=== PATIENT | female | born 1950 | race Caucasian/White ===

== ENCOUNTER → 2016-10-20 | Outpatient (CLI) | payer MEDICARE, BC ==
[~2016-10-20] MED LIST: EZET10TA3 PO; LISI-327 PO; ROSU20TA PO; SOLI5TAB5 PO; [UNRECOGNIZED DRUG - CODE] PO
--- NOTE | 2016-10-21 00:03 | HKNOTE ---
DATE OF SERVICE: MAIN COMPLAINT: Pain in the right knee. Patient underwent arthroscopic surgery of the right knee on 12/05/2015. She was very pleased with t he result of the surgery. She developed a new pain in her knee in 07/2016. Dr. Pattie vazquez ordered a new MRI scan of her knee, which showed a tear of the lateral meniscus. She comes in for revaluation of the knee. PRESENT COMPLAINTS: She gets no pain at rest. She has no locking or instability of the knee. Occa sionally gets very sharp pains in the knee like a knife stabbing into the knee, but mostly the pain is a dull ache, which is absent at rest. PHYSICAL EXAMINATION: GENERAL: A fit looking 66-year-old female. She walks without a walking aid. VITAL SIGNS: Height 5 feet 6 inches, weight 182 pounds, blood pressure 120/80, temperature 97.8. RIGHT KNEE: The right knee shows normal alignment. Extension lacks 5 degrees (painful). Flexion i s to 120 degrees. Tender over the medial joint line. Strength is 5/5. The medial and lateral donna ateral ligaments and cruciate ligaments are intact. Ingrid test is negative. There is no effusion, tenderness, scarring, crepitus, or cysts. The patella tracks normally. There is no tenderness on the articular surface of the patella or in the patellar groove. The Q angle is normal. IMAGING: MRI obtained on 09/02/2016 is reported by the radiologist as showing post-surgical alterat ion of the posterior horn of the medial meniscus. 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 Large to moderate right knee joint effusion with a Michael cyst. Medial joint elmer rtment osteoarthrosis. DISCUSSION: The MRI scan was obtained without gadolinium, so is not totally reliable. However, the patient's knee lacks extension and quite possibly she does have a parrot beak tear of the lateral m eniscus. She does not have any of the other classic symptoms of a torn meniscus, namely locking and instabili ty. There is also no swelling in the knee. MANAGEMENT: The patient was given a repeat injection of 2 mL of Kenalog and 6 mL of 2% lidocaine in to the knee. If this eliminates all her symptoms, then clearly there is no mechanical problem in the knee. If it does not, then we may have to consider a repeat operative arthroscopy focused on the lateral menisc us. Dictated By: WOODY SANDOVAL/ABIGAIL Conf#: [id number] DID#: [id number]
== END | disposition home or self-care (01) ==
LOC: HKI 13:46
DX: Z47.89 Encounter for other orthopedic aftercare (principal); S83.281D Other tear of lateral meniscus, current injury, right knee, subsequent encounter; X58.XXXD Exposure to other specified factors, subsequent encounter
CPT/HCPCS: 20610; G0463; J3301

== ENCOUNTER → 2017-01-20 | Outpatient (CLI) | payer MEDICARE, BC ==
--- NOTE | 2017-01-20 15:08 | PN ---
Date/Time of Note Date/Time of Note DATE: 01/20/17 TIME: 14:57 Outpatient Progress Note Chief Complaint Follow up for Right Knee Pain. (Requesting cortisone injection) HPI 66-year-old female presents today for follow-up regarding right knee pain. Last seen on 10/20/2016 for cortisone injection to the right knee was performed. Patient explains significant relief status post cortisone injection up until recently. Patient has recently returned from a trip. During the trip, she states that she did a lot of exploring, walking as well as a lot of climbing up and down stairs. She has had flare up to the knee with pain on average of 7 out of 10 pain. Denies any falls or injury. Pain is aching and when asked, it appears generalized throughout the knee based off patient description. Patient would like repeat cortisone injection for pain relief. Takes anti- inflammatories as needed. Review of Systems Const: No Fever, no chills, no Fatigue, normal appetite, no diaphoresis. Resp: No SOB, no wheezing, no chest pain. CV: No chest pain, no palpitaions, no QUIGLEY. Physical Exam Blood pressure is 120/66, temperature is 98, pulse is 78, respiratory rate is 12, height is 5 foot 6 inches, weight is 176 pounds. General Appearance: well-developed, well-nourished, in no acute distress. Right knee: No obvious abnormalities on inspection. Patient has full range of motion at 0-130. Mild tenderness to palpation primarily to the medial compartment. Patient has pain with range of motion. 5/5 strength on resistance with flexion and extension. X-ray of the right knee performed on 07/29/2016 showing moderate to severe medial joint space narrowing. Osteoarthritic changes. Allergies Coded Allergies: aspirin (Verified Allergy, Severe, ASTHMA ATTACK, 12/05/15) Assessment/Plan * Cortisone injection to the right knee performed today. Area was marked and then cleaned with Betadine swab. 0.25% Marcaine (6mL) mixed with 40 mg of Kenalog (2 mL) drawn up using 18-gauge needle. 25-gauge needle used to inject the right knee. Patient tolerated procedure well. Band-Aid applied. Patient observed for 5-10 minutes prior to discharge. * Anti-inflammatories as needed for pain. * Patient does have moderate to severe joint space narrowing and patient was made aware that in the future it is likely that she will need total knee replacement but patient would not like to discuss at this time. * Follow-up as needed Medications Home Meds Reported Medications Solifenacin* (Vesicare*) 5 Mg Tablet, 5 MG PO DAILY, TAB 12/04/15 Lisinopril-Hydrochlorothiazide (Lisinopril-HCTZ) 20-12.5 Mg Tab, 1 TAB PO DAILY , #30 TAB 12/04/15 Rosuvastatin Calcium* (Crestor*) 20 Mg Tablet, 20 MG PO QHS, #30 TAB 12/04/15 Ezetimibe* (Zetia*) 10 Mg Tablet, 10 MG PO HS, TAB 12/04/15 Verapamil Hcl* (Verapamil ER*) 300 Mg Cap24h.pel, 300 MG PO HS, CAP 12/04/15 FUNMILAYO BOWENS PA-C January 20, 2017 15:08
== END | disposition home or self-care (01) ==
LOC: HKI 13:19
DX: M25.561 Pain in right knee (principal)
CPT/HCPCS: 20610